=== PATIENT | male | born 2000 | race Caucasian/White ===

== ENCOUNTER 2018-06-08 10:23 | Emergency (ER) | payer SELFPAY ==
[~2018-06-08] VITALS: Ht 188 cm; Wt 143.2 kg
[2018-06-08 10:43] VITALS: BP 131/73
== END 2018-06-08 13:27 | disposition home or self-care (01) ==
LOC: EMS 10:24
DX: S92.355A Nondisplaced fracture of fifth metatarsal bone, left foot, initial encounter for closed fracture (principal); R03.0 Elevated blood-pressure reading, without diagnosis of hypertension; W22.8XXA Striking against or struck by other objects, initial encounter; Y93.89 Activity, other specified; Y92.89 Other specified places as the place of occurrence of the external cause; Y99.8 Other external cause status
CPT/HCPCS: 29515; 99284